=== PATIENT | male | born 1990 | race Two or more races ===

== ENCOUNTER 2017-09-02 16:10 | Emergency (ER) | payer OTHER ==
[~2017-09-02] VITALS: Ht 170.2 cm; Wt 68.0 kg
[2017-09-02 16:13] VITALS: BP 118/80
--- NOTE | 2017-09-02 16:32 | Emergency Room Report ---
History of Present Illness General Chief Complaint: Upper Extremity Injury Source: EMS Present Illness HPI Patient is a 26-year-old female presents today with cuts to his left forearm. He states he got mad and punched through a window and sustained several small and cuts to his left anterior forearm. He states his girlfriend got scared and called 911. He does not recall his last tetanus shot. Patient adamantly denies SI or HI. She is states he occasionally gets depressed but is not currently on medication for it. She admits to smoking marijuana and methamphetamines. Last use of amphetamines was a week ago. Allergies: Coded Allergies: No Known Allergies (Unverified , 09/02/17) Patient History Reviewed Nursing Documentation: PMH: Agreed; PSxH: Agreed Nursing Documentation-PMH Past Medical History: No History, Except For History Of Psychiatric Problem: Yes Review of Systems Skin: Reports: other - abrasions left forearm All Other Systems: negative except mentioned in HPI Physical Exam Vital Signs Date Time Temp Pulse Resp B/P (MAP) Pulse Ox O2 Delivery O2 Flow Rate FiO2 09/02/17 16:03 98.0 84 18 118/80 98 Room Air 98.1 Sp02 EP Interpretation: reviewed, normal General Appearance: no apparent distress, alert, GCS 15, non-toxic Head: normocephalic, atraumatic Eyes: bilateral eye normal inspection, bilateral eye PERRL ENT: hearing grossly normal, normal pharynx, no angioedema, normal voice Neck: full range of motion, supple/symm/no masses Respiratory: chest non-tender, lungs clear, normal breath sounds, speaking full sentences Cardiovascular #1: regular rate, rhythm, no edema Cardiovascular #2: 2+ carotid (R), 2+ carotid (L), 2+ radial (R), 2+ radial (L) , 2+ dorsalis pedis (R), 2+ dorsalis pedis (L) Gastrointestinal: normal bowel sounds, non tender, soft, non-distended, no guarding, no rebound Rectal: deferred Genitourinary: normal inspection, no CVA tenderness Musculoskeletal: back normal, gait/station normal, normal range of motion, non- tender, calf tenderness Neurologic: alert, oriented x3, responsive, motor strength/tone normal, sensory intact, speech normal Psychiatric: judgement/insight normal, memory normal, mood/affect normal, no suicidal/homicidal ideation Reflexes: 3+ bicep (R), 3+ bicep (L), 3+ tricep (R), 3+ tricep (L), 3+ knee (R) , 3+ knee (L) Skin: normal color, no rash, warm/dry, well hydrated, other - superficial abrasions anterior aspect left forearm, scars from previous cutting Lymphatic: no adenopathy Medical Decision Making PA Attestation Supervising physician is Dr. Conteh Diagnostic Impression: Primary Impression: Abrasion forearm ER Course Patient has multiple superficial abrasions to the left forearm that are linear. He has scars from previous cutting episodes. Patient adamantly denies suicidal or homicidal ideation at this time and has no plan to harm himself. He states his girlfriend called 911. Wounds are cleaned and dressed. tetanus is updated in the ED. No need for suture repair at this time. Patient is discharged home with instructions to follow up with PCP for further evaluation and management. Patient since plan and is agreeable. Last Vital Signs Date Time Temp Pulse Resp B/P (MAP) Pulse Ox O2 Delivery O2 Flow Rate FiO2 09/02/17 16:13 98.1 84 18 118/80 100 Room Air 98.1 Status: improved Disposition: HOME, SELF-CARE Condition: Stable Patient Instructions: Rogers, [id number] Danna Coelho Sep 02, 2017 16:32
[2017-09-02 16:45] VITALS: BP 118/80
[2017-09-02] MEDS ORDERED: Tetanus/Diptheria/Pertussis Vaccine 0.5ml Syr IM ONE (16:45)
== END 2017-09-02 17:00 | disposition home or self-care (01) ==
LOC: EDBD 16:10 → EMR 16:30
DX: S50.812A Abrasion of left forearm, initial encounter (principal); Z23 Encounter for immunization; W25.XXXA Contact with sharp glass, initial encounter; Y92.9 Unspecified place or not applicable
CPT/HCPCS: 90471; 90715; 99282